=== PATIENT | male | born 2000 | race African-American/Black ===

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

== ENCOUNTER 2023-07-01 01:07 | Emergency (ER) | payer OTHER ==
[~2023-07-01] VITALS: Ht 172.7 cm; Wt 59.1 kg
[2023-07-01 01:09] VITALS: BP 135/80; PULSE 124; RESP 16; TEMP 97.7
[2023-07-01] MEDS: IBUPROFEN 600 MG TABLET PO ONE (03:28)
== END 2023-07-01 04:08 | disposition home or self-care (01) ==
LOC: EMS 01:08
DX: S01.111A Laceration without foreign body of right eyelid and periocular area, initial encounter (principal); V00.131A Fall from skateboard, initial encounter; Y93.89 Activity, other specified; Y92.89 Other specified places as the place of occurrence of the external cause; Y99.8 Other external cause status
CPT/HCPCS: 99282; Z7502; Z7610